=== PATIENT | male | born 1970 | race Caucasian/White ===

== ENCOUNTER 2018-08-27 10:09 | Inpatient (IN) | payer SELFPAY ==
[~2018-08-27] VITALS: Ht 185.4 cm; Wt 80.8 kg
[2018-08-27] MEDS ORDERED: SODIUM CHLORIDE 0.9% 1,000 ML IV ONE (10:32)
[2018-08-27] MEDS ORDERED: IBUPROFEN 600MG TABLET PO STA (10:32)
[2018-08-27] MEDS ORDERED: IPRATROPIUM BROMIDE (0.02%) 0.5MG/2.5ML NEB HHN STA (10:32)
[2018-08-27] MEDS ORDERED: ALBUTEROL (0.083%) 2.5MG/3ML NEB HHN STA (10:32)
[2018-08-27 10:56] LABS: BASOPHILS % 0.5 % (0.0-2.0); EOSINOPHILS % 1.8 % (0.0-5.0); HEMATOCRIT. 47.4 % (42.0-52.0); HEMOGLOBIN. 16.5 g/dL (14.0-18.0); LYMPHOCYTES % 22.4 % (20.0-50.0); MEAN CORPUSCULAR HEMOGLOBIN 33.7 pg (28.0-32.0); MEAN CORPUSCULAR VOLUME 96.9 fL (80.0-94.0); MEAN PLATELET VOLUME 9.3 fl (7.4-10.4); MONOCYTES % 13.2 % (2.0-8.0); NEUTROPHILS % 62.1 % (40.0-76.0); PLATELET 184 x1000/uL (130-400); RED BLOOD CELL COUNT 4.89 mill/uL (4.7-6.1); RED CELL DISTRIBUTION WIDTH 13.4 % (11.6-14.6)
[2018-08-27 11:01] LABS: CHLORIDE 105 mEq/L (98-107)
[2018-08-27] MEDS ORDERED: LEVOFLOXACIN 750MG PREMIX 150 ML IV ONE (11:15)
[2018-08-27] MEDS ORDERED: SODIUM CHLORIDE 0.9% 1000ML BAG (SEPSIS BOLUS) IV ONE (11:15)
[2018-08-27] MEDS ORDERED: MORPHINE SULFATE 4 MG/ML CPJ (NOT FOR IM USE) IV ONE (12:30)
[2018-08-27 12:36] LABS: CLARITY URINE CLEAR (CLEAR); COLOR URINE DARK YELLOW (YELLOW); KETONES URINE TRACE (NEGATIVE); LEUKOCYTE ESTERASE URINE NEGATIVE (NEGATIVE); NITRITE URINE NEGATIVE (NEGATIVE); OCCULT BLOOD URINE NEGATIVE (NEGATIVE); PH URINE 6.5 (4.5-8.0); PROTEIN URINE NEGATIVE (NEGATIVE)
[2018-08-27] MEDS ORDERED: MORPHINE SULFATE 10 MG/ML CPJ IV ONE (12:45)
[2018-08-27 13:23] VITALS: BP 141/77
[2018-08-27 13:41] VITALS: BP 141/77
[2018-08-27] MEDS ORDERED: DIVA250T4 PO (14:05)
[2018-08-27] MEDS ORDERED: IPRATROPIUM/ALBUTEROL 0.5-3(2.5)MG/3ML NEB INH PRN (15:15)
[2018-08-27] MEDS ORDERED: DIPHENHYDRAMINE 50MG/ML VIAL IV PRN (15:15)
[2018-08-27] MEDS ORDERED: MAGNESIUM/ALUMINUM HYDROXIDE/SIMETHICONE 30ML UDC PO PRN (15:15)
[2018-08-27] MEDS ORDERED: ACETAMINOPHEN 325MG TABLET PO PRN (15:15)
[2018-08-27] MEDS ORDERED: ACETAMINOPHEN WITH CODEINE 300/30MG TABLET PO PRN (15:15)
[2018-08-27] MEDS ORDERED: CLONIDINE 0.1MG TABLET PO PRN (15:15)
[2018-08-27] MEDS ORDERED: MAGNESIUM HYDROXIDE 400MG/5ML 30ML UDC PO PRN (15:15)
[2018-08-27] MEDS: ENOXAPARIN 40MG/0.4ML SYR SUBCUT SCH (15:43)
[2018-08-27 16:00] VITALS: BP 114/65
[2018-08-27] MEDS: IPRATROPIUM/ALBUTEROL 0.5-3(2.5)MG/3ML NEB HHN SCH ×2 (16:59→20:39)
[2018-08-27] MEDS: PROMETHAZINE/DEXTROMETHORPHAN 6.25-15MG/5ML BOTTLE 120ML PO PRN (17:38)
[2018-08-27 20:00] VITALS: BP 104/59
[2018-08-27] MEDS: TEMAZEPAM 15MG CAPSULE PO PRN (20:00)
[2018-08-27] MEDS: DIVALPROEX SODIUM 250MG DR TABLET PO SCH (20:00)
[2018-08-27] MEDS: GUAIFENESIN 600MG ER TABLET PO SCH (20:00)
[2018-08-27] MEDS: HYDROCODONE/ACETAMINOPHEN 10/325MG TABLET PO PRN (20:52)
[2018-08-27] MEDS: SODIUM CHLORIDE 0.9% INJ 3ML FLUSH IVF SCH (22:34)
[2018-08-28] VITALS: BP 144/76
[2018-08-28] MEDS: IPRATROPIUM/ALBUTEROL 0.5-3(2.5)MG/3ML NEB HHN SCH ×6 (01:35→20:09)
[2018-08-28] MEDS: KETOROLAC 30MG/ML VIAL IV PRN ×3 (01:43→19:25)
[2018-08-28 04:00] VITALS: BP 111/62
[2018-08-28] MEDS: SODIUM CHLORIDE 0.9% INJ 3ML FLUSH IVF SCH ×2 (05:13→12:43)
[2018-08-28] MEDS: HYDROCODONE/ACETAMINOPHEN 10/325MG TABLET PO PRN ×3 (06:42→21:40)
[2018-08-28 08:00] VITALS: BP 123/73
[2018-08-28] MEDS: DIVALPROEX SODIUM 250MG DR TABLET PO SCH ×2 (08:52→21:34)
[2018-08-28] MEDS: GUAIFENESIN 600MG ER TABLET PO SCH ×2 (08:52→21:35)
[2018-08-28] MEDS: NICOTINE 21MG PATCH TD SCH (08:52)
[2018-08-28] MEDS: PROMETHAZINE/DEXTROMETHORPHAN 6.25-15MG/5ML BOTTLE 120ML PO PRN ×2 (10:28→21:35)
[2018-08-28 12:00] VITALS: BP 106/74
[2018-08-28] MEDS: LEVOFLOXACIN 500MG PREMIX 100 ML IV SCH (12:42)
[2018-08-28 16:00] VITALS: BP 133/74
[2018-08-28] MEDS: ENOXAPARIN 40MG/0.4ML SYR SUBCUT SCH (16:00)
[2018-08-28 20:00] VITALS: BP 128/73
[2018-08-29] VITALS: BP 132/86
[2018-08-29] MEDS: IPRATROPIUM/ALBUTEROL 0.5-3(2.5)MG/3ML NEB HHN SCH ×4 (00:32→13:21)
[2018-08-29] MEDS: TEMAZEPAM 15MG CAPSULE PO PRN (00:59)
[2018-08-29] MEDS: SODIUM CHLORIDE 0.9% INJ 3ML FLUSH IVF SCH ×3 (00:59→13:38)
[2018-08-29] MEDS: KETOROLAC 30MG/ML VIAL IV PRN ×2 (03:28→09:30)
[2018-08-29 04:00] VITALS: BP 124/82
[2018-08-29] MEDS: HYDROCODONE/ACETAMINOPHEN 10/325MG TABLET PO PRN ×2 (05:05→11:05)
[2018-08-29 08:00] VITALS: BP 126/86
[2018-08-29] MEDS: NICOTINE 21MG PATCH TD SCH (09:24)
[2018-08-29] MEDS: DIVALPROEX SODIUM 250MG DR TABLET PO SCH (09:24)
[2018-08-29] MEDS: GUAIFENESIN 600MG ER TABLET PO SCH (09:24)
[2018-08-29] MEDS: LEVOFLOXACIN 500MG PREMIX 100 ML IV SCH (10:00)
[2018-08-29] MEDS: PROMETHAZINE/DEXTROMETHORPHAN 6.25-15MG/5ML BOTTLE 120ML PO PRN (11:05)
[2018-08-29 12:00] VITALS: BP 132/79
[2018-08-29 16:00] VITALS: BP 140/43
[2018-08-29 16:04] VITALS: BP 140/83
== END 2018-08-29 16:35 | disposition home or self-care (01) | DRG 139 ==
LOC: ER 10:54 → 5WST 11:31 → ENRESERV 12:41 → ER 13:31
PROVIDERS: ADMIT Internal Medicine; ATTEND Internal Medicine
DX: J18.9 Pneumonia, unspecified organism (principal); F31.9 Bipolar disorder, unspecified; G40.909 Epilepsy, unspecified, not intractable, without status epilepticus; B19.20 Unspecified viral hepatitis C without hepatic coma; J45.909 Unspecified asthma, uncomplicated; F17.200 Nicotine dependence, unspecified, uncomplicated; Z87.01 Personal history of pneumonia (recurrent); Z86.19 Personal history of other infectious and parasitic diseases; Z89.022 Acquired absence of left finger(s); Z79.899 Other long term (current) drug therapy
CPT/HCPCS: 36415; 71045; 83605; 84484; 87070; 87804; 93005; 94640; 99285; J1650; J1885; J1956; J2270; J7030; J7050; J7611; J7620